=== PATIENT | female | born 1950 | race Caucasian/White ===

== ENCOUNTER 2018-09-26 19:50 | Emergency (ER) | payer MEDICARE, BC ==
[~2018-09-26] VITALS: Ht 170.2 cm; Wt 65.8 kg
--- NOTE | 2018-09-26 20:22 | NUR ---
Law enforcement at bedside to take police report
[2018-09-26] MEDS ORDERED: ONDANSETRON ODT 4 MG TAB.RAPDIS ONE (20:39)
[2018-09-26] MEDS ORDERED: OXYCODONE/APAP 5-325 MG TABLET ONE (20:39)
[2018-09-26] MEDS ORDERED: OXYCODONE/APAP 5-325 MG TABLET PO ONE (20:45)
[2018-09-26] MEDS ORDERED: ONDANSETRON ODT 4 MG TAB.RAPDIS SL ONE (20:45)
--- NOTE | 2018-09-26 20:47 | NUR ---
Patient discharged to home in stable conditon. Written and verbal after care instructions given. Patient verbalizes understanding of instructions. Patient ambulated with stable gait.
[2018-09-26 21:01] VITALS: BP 135/89
== END 2018-09-26 21:01 | disposition home or self-care (01) ==
LOC: ER 19:54
DX: S20.212A Contusion of left front wall of thorax, initial encounter (principal); S50.12XA Contusion of left forearm, initial encounter; Z90.49 Acquired absence of other specified parts of digestive tract; Z88.0 Allergy status to penicillin; V49.9XXA Car occupant (driver) (passenger) injured in unspecified traffic accident, initial encounter; Y93.89 Activity, other specified; Y92.89 Other specified places as the place of occurrence of the external cause; Y99.8 Other external cause status
CPT/HCPCS: 71045; A4663; Q0162